=== PATIENT | male | born 1940 | race Caucasian/White ===

== ENCOUNTER 2018-05-21 15:49 | Emergency (ER) | payer MEDICARE ==
[~2018-05-21] VITALS: Ht 177.8 cm; Wt 103.9 kg
[~2018-05-21 15:49] MED LIST: ASPIRIN325 MG PO; ATORVASTATIN CA20 MG PO; HYDROCHLOROTHIA25 MG PO; METOPROLOL TART25 MG PO; TAMSULOSIN HCL0.4 MG PO; Z.0.FLOMAX0.4 MG; Z.0.NORVASC5 MG
--- OUTSIDE RECORDS SUMMARY | 2018-05-21 15:51 | XMS REPORT | Clinical Summary ---
Author Author [employer] Organization [employer] Address Unknown Phone Unavailable Care Team Providers Care Associate Professor Plant Pathology Name Role Phone Lexi Hathaway MD PCP Allergies Comments Active Allergy Reactions Severity Noted Date Cough Lisinopril 04/07/2012 Medications End Date Status Medication Sig Dispensed Refills Start Date Active MULTIVIT-MIN/FA/LYCOPEN/L Take 1 tablet 0 UTEIN (CENTRUM SILVER MEN by mouth ORAL) every morning. Active atorvastatin (LIPITOR) 40 Take 40 mg by 0 MG tablet mouth every evening. Active metoprolol tartrate Take 25 mg by 0 (LOPRESSOR) 25 mg tablet mouth every morning. Active aspirin 325 MG tablet Take 325 mg 0 by mouth every morning. Active hydroCHLOROthiazide Take 12.5 mg 0 (HYDRODIURIL) 25 MG by mouth tablet every morning. Active Problems Problem Noted Date Complete heart block 09/14/2017 Encounters Care Team Description Date Type Specialty Lexi Hathaway MD S/P placement of cardiac pacemaker (Primary Dx); Essential hypertension 09/18/2017 Office Visit Internal Medicine Manuelito Rivera MD Pacemaker insertion new or replacement [93672 (CPT)] 09/15/2017 Surgery Procedural Cardiology Heather Meyers MD Kohlnhofer, Matthew, MD Complete heart block (Primary Dx) 09/14/2017 Hospital Intensive Care - Encounter 09/15/2017 after 05/20/2017 Immunizations Name Dates Previously Given Next Due Pneumococcal 03/20/2017 Polysaccharide Family History Medical History Relation Name Comments Stroke Mother Elaine Oncjosey Relation Name Status Comments Father Mother Elaine Oncjosey Social History Date Tobacco Use Types Packs/Day Years Used Never Smoker Smokeless Tobacco: Never Used Alcohol Use Drinks/Week oz/Week Comments Yes 5 Glasses of wine Sex Assigned at Date Recorded Not on file Industry Job Start Date Occupation Not on file Not on file Not on file Travel End Travel History Travel Start No recent travel history available. Last Filed Vital Signs Time Taken Vital Sign Reading 09/18/2017 10:01 AM CDT Blood Pressure 147/79 09/18/2017 10:01 AM CDT Pulse 69 09/18/2017 9:56 AM CDT Temperature 36.6 C (97.8 F) 09/15/2017 4:00 PM CDT Respiratory Rate 22 09/15/2017 4:00 PM CDT Oxygen Saturation 97% - Inhaled Oxygen - Concentration 09/18/2017 9:56 AM CDT Weight 105 kg (231 lb) 09/18/2017 9:56 AM CDT Height 177.8 cm (5' 10") 09/18/2017 9:56 AM CDT Body Mass Index 33.15 Plan of Treatment Health Maintenance Due Date Last Done Comments SHINGLES VACCINES (#1) 11/17/1991 65+ PNEUMOCOCCAL VACCINE Completed 03/20/2017, 02/23/2015, 04/07/2012 PNEUMOCOCCAL Completed 03/20/2017, 04/07/2012 POLYSACCHARIDE VACCINE AGE 65 AND OVER INFLUENZA VACCINE Completed 02/10/2018, 01/31/2017, 01/12/2017, Additional history exists Implants Device Identifier Shelf Expiration Date Model / Serial / Lot Implanted Type Area Manufactur er 06/09/2020 [id number] / / [id number] Disp Pacing Cable, Small Clip Cables/ N/A: N/A DERIAN W/Safe Connect Leads MEDICAL, Implanted: Qty: 1 on 09/15/2017 by INC. Manuelito Rivera MD 06/30/2019 [id number] / [id number] / [id number] Accolade Mri Pacemaker - [id number] Cardiac N/A: N/A BOSTON - [id number] Pacemaker SCIENTIFIC Implanted: Qty: 1 on 09/15/2017 by Generators - CRM Manuelito Rivera MD 05/27/2019 [id number] / [id number] / [id number] Lead Pacing Ingevity Mri Passive Cardiac N/A: N/A BOSTON 52cm Straight - [id number] - Pacing SCIENTIFIC [id number] Leads or MINGO CRM Implanted: Qty: 1 on 09/15/2017 by Electrodes Manuelito Rivera MD or Accessorie s 05/28/2019 [id number] / [id number] / [id number] Lead Pace Endocrdl Actv-Fxtn Cardiac N/A: N/A GUIDANT Bipolar Sterd-Eltng 7fr 45cm - Pacing [employer] [facility] [id number] - [id number] Leads or Implanted: Qty: 1 on 09/15/2017 by Electrodes Manuelito Rivera MD or Andrew giordano Procedures Comments Procedure Name Priority Date/Time Associated Diagnosis EP PACEMAKER INSERTION Routine 09/15/2017 NEW OR REPLACEMENT 9:03 AM CDT ZZESTIMATED GFR Routine 09/15/2017 5:45 AM CDT BASIC METABOLIC PANEL Routine 09/15/2017 5:45 AM CDT HC COMPLETE BLD COUNT Routine 09/15/2017 W/AUTO DIFF 5:45 AM CDT TROPONIN Timed 09/14/2017 10:45 PM CDT TROPONIN Timed 09/14/2017 4:40 PM CDT XR CHEST 1 VW PORTABLE STAT 09/14/2017 11:09 AM CDT ZZESTIMATED GFR STAT 09/14/2017 10:54 AM CDT B NATRIURETIC PEPTIDE STAT 09/14/2017 10:54 AM CDT TROPONIN STAT 09/14/2017 10:54 AM CDT MAGNESIUM LEVEL STAT 09/14/2017 10:54 AM CDT PHOSPHORUS LEVEL STAT 09/14/2017 10:54 AM CDT PARTIAL THROMBOPLASTIN STAT 09/14/2017 TIME (PTT) 10:54 AM CDT PROTHROMBIN TIME WITH INR STAT 09/14/2017 10:54 AM CDT HC COMPLETE BLD COUNT STAT 09/14/2017 W/AUTO DIFF 10:54 AM CDT COMPREHENSIVE METABOLIC STAT 09/14/2017 PANEL 10:54 AM CDT ECG 12-LEAD STAT 09/14/2017 10:40 AM CDT ECG ED PRELIMINARY Routine 09/14/2017 INTERPRETATION 10:35 AM CDT AL CRITICAL CARE, E/M Routine 09/14/2017 30-74 MINUTES 10:35 AM CDT after 05/20/2017 Results * Cv electrophysiology procedure (09/15/2017 9:03 AM CDT) Narrative Performed At Performing Organization Address City/[facility]/Zipcode Phone Number [facility] [address] [place] [address] * Estimated GFR (09/15/2017 5:45 AM CDT) Only the most recent of 2 results within the time period is included. GFR Non Af Amer 49 (A) mL/min/1.73 m2 [facility] DEPARTMENT OF PATHOLOGY AND GENOMIC MEDICINE GFR Af Amer 60 mL/min/1.73 m2 [facility] DEPARTMENT OF Comment: PATHOLOGY AND Chronic kidney disease: <60 GENOMIC MEDICINE mL/min/1.73m2 Kidney failure: <15 mL/min/1.73m2 The estimated GFR is calculated from the IDMS-traceable Modification of Diet in Renal Disease Equation. The accuracy of the calculation is poor when the creatinine is normal. Calculated values >90 mL/min/1.73m2 are not reported. This equation has not been validated in children (<18 years), women, the elderly (>70 years), or ethnic groups other than Caucasians and Americans. Specimen Plasma specimen Performing Organization Address City/State/Zipcode Phone [place] [facility] [address] [place] [address] PATHOLOGY AND GENOMIC MEDICINE * CBC with platelet and differential (09/15/2017 5:45 AM CDT) Only the most recent of 2 results within the time period is included. WBC 7.99 4.50 - 11.00 k/uL [facility] DEPARTMENT OF PATHOLOGY AND GENOMIC MEDICINE RBC 4.77 4.40 - 6.00 m/uL [facility] DEPARTMENT OF PATHOLOGY AND GENOMIC MEDICINE HGB 15.0 14.0 - 18.0 g/dL [facility] DEPARTMENT OF PATHOLOGY AND GENOMIC MEDICINE HCT 43.7 41.0 - 51.0 % [facility] DEPARTMENT OF PATHOLOGY AND GENOMIC MEDICINE MCV 91.6 82.0 - 100.0 fL [facility] DEPARTMENT OF PATHOLOGY AND GENOMIC MEDICINE MCH 31.4 27.0 - 34.0 pg [facility] DEPARTMENT OF PATHOLOGY AND GENOMIC MEDICINE MCHC 34.3 31.0 - 37.0 g/dL [facility] DEPARTMENT OF PATHOLOGY AND GENOMIC MEDICINE RDW - SD 41.9 37.0 - 55.0 fL [facility] DEPARTMENT OF PATHOLOGY AND GENOMIC MEDICINE MPV 11.2 8.8 - 13.2 fL [facility] DEPARTMENT OF PATHOLOGY AND GENOMIC MEDICINE Platelet count 171 150 - 400 k/uL [facility] PATHOLOGY AND GENOMIC MEDICINE Nucleated RBC 0.00 /100 WBC [facility]PART[facility] PATHOLOGY AND GENOMIC MEDICINE Neutrophils 63.4 39.0 - 69.0 % [facility] OF PATHOLOGY AND GENOMIC MEDICINE Lymphocytes 24.4 (L) 25.0 - 45.0 % [facility]PARTMENT OF PATHOLOGY AND GENOMIC MEDICINE Monocytes 7.9 0.0 - 10.0 % [facility]PARTMENT OF PATHOLOGY AND GENOMIC MEDICINE Eosinophils 3.3 0.0 - 5.0 % [facility] PATHOLOGY AND GENOMIC MEDICINE Basophils 0.6 0.0 - 1.0 % [facility] DEPARTMENT OF PATHOLOGY AND GENOMIC MEDICINE Specimen Blood Performing Organization Address City/State/Zipcode Phone Number [facility] [address] [place] [id number] PATHOLOGY AND GENOMIC MEDICINE * Basic metabolic panel (09/15/2017 5:45 AM CDT) Sodium 144 135 - 148 mEq/L [facility] DEPARTMENT OF PATHOLOGY AND GENOMIC MEDICINE Potassium 4.3 3.5 - 5.0 mEq/L [facility] DEPARTMENT OF PATHOLOGY AND GENOMIC MEDICINE Chloride 107 98 - 112 mEq/L [facility] DEPARTMENT OF PATHOLOGY AND GENOMIC MEDICINE CO2 25 24 - 31 mEq/L [facility] DEPARTMENT OF PATHOLOGY AND GENOMIC MEDICINE Anion gap 12@ANIO 7 - 15 mEq/L [facility] DEPARTMENT OF PATHOLOGY AND GENOMIC MEDICINE BUN 20 8 - 23 mg/dL [facility] DEPARTMENT OF PATHOLOGY AND GENOMIC MEDICINE Creatinine 1.4 (H) 0.7 - 1.2 mg/dL [facility] DEPARTMENT OF PATHOLOGY AND GENOMIC MEDICINE Glucose 129 (H) 65 - 99 mg/dL [facility] DEPARTMENT OF PATHOLOGY AND GENOMIC MEDICINE Calcium 9.0 8.8 - 10.2 mg/dL [facility] DEPARTMENT OF PATHOLOGY AND GENOMIC MEDICINE Specimen Plasma specimen Performing Organization Address City/[facility] Cent[facility]ode Phone Number [facility] [id number] [place] [address] [place] [address] PATHOLOGY AND GENOMIC MEDICINE * Troponin (09/14/2017 10:45 PM CDT) Only the most recent of 3 results within the time period is included. Troponin <0.300 0.000 - 0.300 ng/mL [facility] DEPARTMENT OF Comment: PATHOLOGY AND 0.30 - 1.49 GENOMIC MEDICINE ng/mlMay indicate increased risk of acute coronary syndrome. >=1.5 ng/ml Consistent with acute myocardial infarction. The diagnostic value of a single normal or non-diagnostic result is questionable.Serial samples at 2-6 hour intervals are required to rule out acute myocardial injury. Specimen Plasma specimen Performing Organization Address [facility] Phone Number [address] [place] [phone] PATHOLOGY AND GENOMIC MEDICINE * XR Chest 1 Vw Portable (09/14/2017 11:09 AM CDT) Narrative Performed At EXAMINATION:XR CHEST 1 VW PORTABLE [facility] CLINICAL HISTORY:Chest Pain COMPARISON:None IMPRESSION: An AP radiograph of the chest is reviewed. The heart size is enlarged. The patient has undergone median sternotomy. There is volume loss and scarring in the lung bases, worse on the left side. No focal consolidation is present. There is no significant pleural effusion or pneumothorax. There is no acute osseous abnormality. [facility]-[id number] Procedure Note Hm Interface, Radiology Results Incoming - 09/14/2017 11:13 AM CDT EXAMINATION: XR CHEST 1 VW PORTABLE CLINICAL HISTORY: Chest Pain COMPARISON: None IMPRESSION: An AP radiograph of the chest is reviewed. The heart size is enlarged. The patient has undergone median sternotomy. There is volume loss and scarring in the lung bases, worse on the left side. No focal consolidation is present. There is no significant pleural effusion or pneumothorax. There is no acute osseous abnormality. [facility]-[id number] Performing Organization Address City/[facility]/Zipcode Phone Number [facility] [address] [place] [address] * Partial thromboplastin time, activated (09/14/2017 10:54 AM CDT) PTT 30.0 23.0 - 36.0 sec [facility] DEPARTMENT OF Comment: PATHOLOGY AND PTT therapeutic range for [facility] MEDICINE unfractionated heparin is 61.0-112.0 seconds which corresponds to Anti-Xa 0.3-0.7 U/ml. Specimen Blood Performing Organization Address [facility] Phone Number [address] [place] [address] PATHOLOGY AND [facility] MEDICINE * Prothrombin time with INR (09/14/2017 10:54 AM CDT) Prothrombin time 12.9 12.0 - 15.0 sec [facility] DEPARTMENT OF PATHOLOGY AND GENOMIC MEDICINE INR 1.0 [facility] DEPARTMENT OF Comment: PATHOLOGY AND The International Normalized GENOMIC MEDICINE Ratio (INR) is a therapeutic monitoring tool for patients who are stable on oral anticoagulant therapy. An INR of 2.0-3.0 is suggested for deep vein thrombosis/pulmonary embolism. Specimen Blood Performing Organization Address [facility] Number [address] [place] [address] PATHOLOGY AND [facility] * Phosphorus level (09/14/2017 10:54 AM CDT) Phosphorus 2.6 2.4 - 4.5 mg/dL [facility] DEPARTMENT OF PATHOLOGY AND [facility] MEDICINE Specimen Plasma specimen Performing Organization [facility] Number [address] [place] [address] PATHOLOGY AND [facility] * B natriuretic peptide (09/14/2017 10:54 AM CDT) BNP 530 (H) 0 - 100 pg/mL [facility] DEPARTMENT OF PATHOLOGY AND [facility] MEDICINE Specimen Blood Performing Organization Address [facility] Number [address] [place] [address] PATHOLOGY AND [facility] * Magnesium level (09/14/2017 10:54 AM CDT) Magnesium 1.9 1.6 - 2.4 mg/dL [facility] DEPARTMENT OF PATHOLOGY AND [facility]za MEDICINE Specimen Plasma specimen Performing Organization [facility] Number [address] [place] [address] PATHOLOGY AND [facility] MEDICINE * Comprehensive metabolic panel (09/14/2017 10:54 AM CDT) Sodium 144 135 - 148 mEq/L [facility] DEPARTMENT OF PATHOLOGY AND GENOMIC MEDICINE Potassium 3.8 3.5 - 5.0 mEq/L [facility] DEPARTMENT OF PATHOLOGY AND GENOMIC MEDICINE Chloride 104 98 - 112 mEq/L [facility] DEPARTMENT OF PATHOLOGY AND GENOMIC MEDICINE CO2 28 24 - 31 mEq/L [facility] DEPARTMENT OF PATHOLOGY AND GENOMIC MEDICINE Anion gap 12@ANIO 7 - 15 mEq/L [facility] DEPARTMENT OF PATHOLOGY AND GENOMIC MEDICINE BUN 22 8 - 23 mg/dL [facility] DEPARTMENT OF PATHOLOGY AND GENOMIC MEDICINE Creatinine 1.6 (H) 0.7 - 1.2 mg/dL [facility] DEPARTMENT OF PATHOLOGY AND GENOMIC MEDICINE Glucose 114 (H) 65 - 99 mg/dL [facility] DEPARTMENT OF PATHOLOGY AND GENOMIC MEDICINE Calcium 9.4 8.8 - 10.2 mg/dL [facility] DEPARTMENT OF PATHOLOGY AND GENOMIC MEDICINE Protein 6.5 6.3 - 8.3 g/dL [facility] DEPARTMENT OF Comment: PATHOLOGY AND GENOMIC MEDICINE 4.6-7.0 g/dL 1 week 4.4-7.6 g/dL 7 months-1year 5.1-7.3 g/dL 1-2 years5.6-7 .5 g/dL >3 years6.0-8 .0 g/dL 18-150 6.3-8.3 g/dL Albumin 4.0 3.5 - 5.0 g/dL [facility] DEPARTMENT OF PATHOLOGY AND GENOMIC MEDICINE A/G ratio 1.6 0.7 - 3.8 [facility] DEPARTMENT OF PATHOLOGY AND GENOMIC MEDICINE Alkaline phosphatase 76 40 - 129 U/L [facility] DEPARTMENT OF PATHOLOGY AND GENOMIC MEDICINE AST 28 10 - 50 U/L [facility] DEPARTMENT OF PATHOLOGY AND GENOMIC MEDICINE ALT 38 5 - 50 U/L [facility] DEPARTMENT OF PATHOLOGY AND GENOMIC MEDICINE Total bilirubin 0.7 0.0 - 1.2 mg/dL [facility] DEPARTMENT OF PATHOLOGY AND GENOMIC MEDICINE Specimen Plasma specimen Performing Organization Address City/State/Zipcode Phone Number [facility] [address] [place] [address] PATHOLOGY AND GENOMIC MEDICINE * ECG 12 lead (09/14/2017 10:40 AM CDT) Ventricular rate 36 [facility] Atrial rate 38 [facility] QRSD interval 130 [facility] QT interval 540 [facility] QTC interval 417 [facility] QRS axis 1 99 [facility] MUSE T wave axis 23 [facility] MUSE EKG impression Sinus bradycardia with 2nd [facility] M[facility] degree AV block (Mobitz I) Vs AV dissociation-Right bundle branch block-Septal infarct , age undetermined-Abnormal ECG-No previous ECGs available- Performing Organization Address City/State/Zipcode Phone Number [facility] MUSE [address] [place] [address] * ECG ED Preliminary Interpretation - NOT AN ORDER (09/14/2017 10:35 AM CDT) Narrative Performed At Heather Meyers MD 09/14/20172:55 PM ECG ED Preliminary Interpretation - Not an Order Performed by: HEATHER MEYERS Authorized by: HEATHER MEYERS ECG reviewed by ED Physician in the absence of a line staker: yes Interpretation: Interpretation: non-specific Rate: ECG rate:35 ECG rate assessment: bradycardic Rhythm: Rhythm: A-V block Rhythm comment:Complete QRS: QRS axis:Normal Conduction: Conduction: normal ST segments: ST segments:Non-specific T waves: T waves: non-specific * CRITICAL CARE (09/14/2017 10:35 AM CDT) Narrative Performed At Heather Meyers MD 09/14/20172:55 PM Critical Care Performed by: HEATHER MEYERS Authorized by: HEATHER MEYERS Critical care provider statement: Critical care time (minutes):35 Critical care was necessary to treat or prevent imminent or life-threatening deterioration of the following conditions:Cardiac failure Critical care was time spent personally by me on the following activities:Blood draw for specimens, development of treatment plan with patient or surrogate, discussions with consultants, discussions with primary provider, evaluation of patient's response to treatment, examination of patient, interpretation of cardiac output measurements, obtaining history from patient or surrogate, review of old charts, re-evaluation of patient's condition, ordering and review of radiographic studies, ordering and review of laboratory studies and ordering and performing treatments and interventions William 'yes' if you are taking over critical care for this patient from another provider.: no after 05/20/2017 Insurance Payer Benefit Subscriber ID Type Phone Address Plan / Group MEDICARE MEDICARE xxxxxxxxxx Medicare [place], [place] PART A AND B AARP AARP xxxxxxxxxxx Commercial SUPPLEMENT Advance Directives Patient has advance care planning documents, and code status on file. For more i nformation, please contact: Malcolm Cantu [address] [place] [address] Date Inactivated Comments Code Status Date Activated 09/15/2017 10:04 PM Full Code 09/14/2017 1:46 PM Code Status decision reached by: Patient
[2018-05-21] MEDS ORDERED: METHYLPREDNISOLONE SOD SUCC 125 MG/2ML VIAL IM ONE (17:00)
[2018-05-21] MEDS ORDERED: DIPHENHYDRAMINE HCL INJ 50 MG/ML VIAL IM ONE (17:00)
[2018-05-21] MEDS ORDERED: FAMOTIDINE 20 MG TAB PO ONE (17:00)
[2018-05-21 17:10] VITALS: BP 157/81
== END 2018-05-21 17:14 | disposition home or self-care (01) ==
LOC: FSED 15:49
DX: L50.0 Allergic urticaria (principal); I10 Essential (primary) hypertension; E78.5 Hyperlipidemia, unspecified; Z95.1 Presence of aortocoronary bypass graft
CPT/HCPCS: 99282; J1200; J2930